=== PATIENT | female | born 1980 | race Caucasian/White ===

== ENCOUNTER → 2016-11-20 | Outpatient (CLI) | payer OTHER ==
[~2016-11-20] MED LIST: LEVO150T7 PO; MELO-1 PO; TOPA50TA7 PO
--- NOTE | 2016-11-20 15:20 | RADRPT ---
EXAM DATE/TIME: 11/20/2016 13:03 [place] COMPARISON: CT ABDOMEN & PELVIS W/O CONTRAST, August 21, 2015, 21:00. INDICATIONS : Hematuria with right flank pain, history of kidney stones. ORAL CONTRAST: Prescribed oral contrast ingested. RADIATION DOSE: 6.82 CTDIvol (mGy) MEDICAL HISTORY : Renal calculi. SURGICAL HISTORY : Hysterectomy. ENCOUNTER: Initial ACUITY: 1 week PAIN SCALE: 4/10 LOCATION: Right flank TECHNIQUE: Volumetric scanning of the abdomen and pelvis was performed. Using automated exposure control and ad justment of the mA and/or kV according to patient size, radiation dose was kept as low as reasonably achievable to obtain optimal diagnostic quality images. FINDINGS: Examination of the lung bases demonstrates no abnormality. No pleural fluid is identified. No pulmona ry nodules are present. The liver and spleen are free of focal defects. The gallbladder and pancreas demonstrate no abnormality. The adrenal glands are normal. The kidneys demonstrate no evidence of matt id renal mass or hydronephrosis. No free fluid or abdominal masses are identified. No para-aortic enrique nopathy is seen. Examination of the pelvis demonstrates no evidence of free fluid or pelvic mass. No abnormally enlarg ed inguinal or retroperitoneal lymph nodes are present. The bladder is unremarkable. CONCLUSION: 1. No evidence of acute abdominal or pelvic process. No masses are identified. No renal stones are id entified. Martín Rojas MD on November 20, 2016 at 15:05 Board Certified Radiologist. This report was verified electronically.
== END ==
LOC: HRAD 12:33
PROVIDERS: ATTEND Obstetrics & Gynecology Gynecology
DX: N20.0 Calculus of kidney (principal)
CPT/HCPCS: 74176